=== PATIENT | male | born 1960 | race Caucasian/White ===

== ENCOUNTER 2021-08-19 23:21 | Inpatient (IN) | payer BC ==
[2021-08-20] MEDS ORDERED: Metoclopramide HCl 10 MG/2 ML VIAL ONE (00:18)
[2021-08-20] MEDS ORDERED: diphenhydrAMINE 50 MG/ML VIAL ONE (00:18)
[2021-08-20] MEDS ORDERED: Ondansetron PF 4 MG/2 ML Vial IVP PRN (03:30)
[2021-08-20] MEDS ORDERED: Acetaminophen 325 MG TAB PO PRN (03:30)
[2021-08-20] MEDS ORDERED: traMADol HCl 50 MG TAB PO PRN (03:31)
[2021-08-20] MEDS ORDERED: Acetaminophen 325 MG TAB ONE (03:32)
[2021-08-20] MEDS ORDERED: Sodium Chloride 0.9% 1,000 ML IV SCH (03:45)
[2021-08-20] MEDS ORDERED: Cefepime 2 GM VIAL ONE (05:58)
== END 2021-08-20 08:30 | disposition short-term general hospital (02) | DRG 808 ==
LOC: ERS 23:21 → ERHOLD 08-20 00:20
PROVIDERS: ADMIT Internal Medicine; ATTEND Internal Medicine
DX: D70.9 Neutropenia, unspecified (principal); J18.9 Pneumonia, unspecified organism; R50.81 Fever presenting with conditions classified elsewhere; D69.6 Thrombocytopenia, unspecified; F17.210 Nicotine dependence, cigarettes, uncomplicated
CPT/HCPCS: 36415; 36430; 83605; 86850; 86900; 86901; 96374; 96375; J0692; J1200; J2765; P9035

== ENCOUNTER 2021-10-28 21:39 | Observation (INO) | payer BC ==
[2021-10-28 23:32] LABS: Hemoglobin 6.2 g/dL (14.0-18.0); Mean Corpuscular HGB CONC 35.3 g/dL (32.0-36.0); Mean Corpuscular Volume 90.7 fL (78.0-98.0); Mean Platelet Volume 15.1 fL (7.4-10.4); Platelet Count 2 thou/uL (130-400); RBC Distribution Width 12.8 % (11.5-14.5); Red Blood Cell (RBC) Count 1.95 mill/uL (4.70-6.10); Reflex for Review?? YES; White Blood Cell (WBC) Count 0.5 thou/uL (4.8-10.8)
[2021-10-28 23:52] LABS: ALT (SGPT) 14 U/L (8-55); AST (SGOT) 9 U/L (5-34); Albumin 3.6 g/dL (3.5-5.0); Alkaline Phosphatase 88 U/L (40-110); Anion Gap 14 mmol/L (10-20); BUN (Urea Nitrogen) 14 mg/dL (8.4-25.7); Calc. Creatinine Clearance 0 mL/min (70-130); Calcium 9.6 mg/dL (7.8-10.44); Carbon Dioxide 26 mmol/L (22-29); Chloride 102 mmol/L (98-107); Globulin 2.8 g/dL (2.4-3.5); Glucose 130 mg/dL (70-105); Potassium 3.6 mmol/L (3.5-5.1); Protein, Total 6.4 g/dL (6.0-8.3); Sodium 138 mmol/L (136-145)
[2021-10-29 00:05] LABS: Hypochromia SLIGHT = 6-15 cells (100X) (0-5/hpf); MDiff Complete? YES; Platelet Morphology Comment Appears Decreased
[2021-10-29 00:14] LABS: Bilirubin, Total 0.5 mg/dL (0.2-1.2)
[2021-10-29 03:09] VITALS: BMI 24.4
[2021-10-29 03:54] LABS: SARS-CoV-2 NAA Rapid Test Not Detected (NotDetected)
[2021-10-29] MEDS ORDERED: Ondansetron PF 4 MG/2 ML Vial IVP PRN (09:44)
[2021-10-29] MEDS ORDERED: Acetaminophen 325 MG TAB PO PRN (09:44)
[2021-10-29] MEDS ORDERED: Promethazine HCl 25 MG in Sodium Chloride 0.9% 50 ML IVPB PRN (09:50)
[2021-10-29 13:48] LABS: Hemoglobin 7.1 g/dL (14.0-18.0); Mean Corpuscular HGB CONC 34.9 g/dL (32.0-36.0); Mean Corpuscular Hemoglobin 31.2 pg (27.0-31.0); Mean Corpuscular Volume 89.3 fL (78.0-98.0); Mean Platelet Volume 7.8 fL (7.4-10.4); Platelet Count 27 thou/uL (130-400); RBC Distribution Width 13.7 % (11.5-14.5); Red Blood Cell (RBC) Count 2.27 mill/uL (4.70-6.10); White Blood Cell (WBC) Count 0.8 thou/uL (4.8-10.8)
[2021-10-29 14:21] LABS: Band 24 % (5-11); Dohle Bodies SLIGHT; Lymphocytes 36 % (21-51); MDiff Complete? YES; Monocytes 16 % (0-10); Neutrophil 22 % (42-75); Platelet Morphology Comment Appears Decreased; Polychromasia SLIGHT = 2-3 cells (100X) (0-2/hpf); Reactive Lymphocytes 2 % (0-10)
[2021-10-29 15:56] VITALS: BP 103/74; TEMP 97.7
[2021-10-29] MEDS ORDERED: MIDOSTAURIN 25 MG PO SCH ×2 (21:00)
[2021-10-29] MEDS ORDERED: Acyclovir 400 mg Tablet PO SCH (21:00)
[2021-10-29] MEDS ORDERED: Temazepam 15 MG CAP PO SCH (21:00)
[2021-10-30] MEDS ORDERED: Fluconazole 100 MG TAB PO SCH (09:00)
[2021-10-30] MEDS ORDERED: Non-Formulary Item 1 EACH (Omeprazole [Omeprazole] 20 MG Capsule.Dr) PO SCH (09:00)
[2021-10-30] MEDS ORDERED: Docusate 100 MG CAP PO SCH (09:00)
[2021-10-30] MEDS ORDERED: Non-Formulary Item 1 EACH (Fluconazole [Fluconazole] 200 MG Tablet) PO SCH (09:00)
== END 2021-10-29 16:41 | disposition home or self-care (01) ==
LOC: ERS 21:39 → MSONC 10-29 00:22 → INTOOBSV 10-29 00:22
PROVIDERS: ADMIT Family Medicine; ATTEND Internal Medicine
DX: D61.810 Antineoplastic chemotherapy induced pancytopenia (principal); T45.1X5A Adverse effect of antineoplastic and immunosuppressive drugs, initial encounter; C92.00 Acute myeloblastic leukemia, not having achieved remission; Z20.822 Contact with and (suspected) exposure to COVID-19; J44.9 Chronic obstructive pulmonary disease, unspecified; Z79.899 Other long term (current) drug therapy; Z91.018 Allergy to other foods
CPT/HCPCS: 36415; 36430; 80053; 85025; 85060; 86850; 86900; 86901; G0378; P9016; P9035; U0002

== ENCOUNTER 2024-11-10 23:43 | Inpatient (IN) | payer MEDICARE ==
[2024-11-11] MEDS ORDERED: Melatonin 3 MG TAB PO PRN (01:14)
[2024-11-11] MEDS ORDERED: Ondansetron PF 4 MG/2 ML Vial IVP PRN (01:14)
[2024-11-11] MEDS ORDERED: Albuterol 2.5 MG (3 mL) NEB NEB PRN (01:21)
[2024-11-11 01:40] VITALS: BMI 25.2
[2024-11-11] MEDS: Azithromycin 500 MG in Sodium Chloride 0.9% 250 ML 250 ML IVPB SCH (02:03)
[2024-11-11] MEDS: cefTRIAXone\\ROCEPHIN 1 GM in Sodium Chloride 0.9% 100 ML IVPB SCH (02:03)
[2024-11-11 05:04] LABS: #Basophils Less than 0.03 10x3/uL (0.0-0.2); #Eosinophils Less than 0.03 10x3/uL (0.0-0.7); #Monocytes 0.16 10x3/uL (0.11-0.59); #Neutrophils 5.72 10x3/uL (1.40-6.50); %Basophils 0.1 % (0.0-1.0); %Eosinophils 0.0 % (0.0-10.0); %Lymphocytes 13.0 % (21.0-51.0); %Monocytes 2.3 % (0.0-10.0); %Neutrophils 84.0 % (42.0-75.0); Hematocrit 36.5 % (42.0-52.0); Hemoglobin 11.6 g/dL (14.0-18.0); Mean Corpuscular Hemoglobin 29.0 pg (27.0-31.0); Mean Corpuscular Volume 91.3 fL (78.0-98.0); Platelet Count 152 10x3/uL (130-400); Red Blood Cell (RBC) Count 4.00 mill/uL (4.70-6.10); White Blood Cell (WBC) Count 6.82 10x3/uL (4.8-10.8)
[2024-11-11 05:29] LABS: Anion Gap 11 mmol/L (10-20); BUN (Urea Nitrogen) 11 mg/dL (8.4-25.7); Calc. Creatinine Clearance 109 mL/min (70-130); Calcium 8.0 mg/dL (7.8-10.44); Carbon Dioxide 25 mmol/L (23-31); Chloride 108 mmol/L (98-107); Glucose 176 mg/dL (80-115); Potassium 4.3 mmol/L (3.5-5.1); Sodium 140 mmol/L (136-145)
[2024-11-11 06:12] LABS: Legionella Urinary Ag Negative (Negative); Strep pneumo Urine Ag NEGATIVE (NEGATIVE)
[2024-11-11] MEDS: guaiFENesin/DM ER PO SCH (21:20)
[2024-11-11] MEDS: Famotidine 20 MG TAB PO SCH (21:21)
[2024-11-11] MEDS: Acetaminophen 325 MG TAB PO PRN (21:21)
[2024-11-12 05:33] LABS: #Basophils Less than 0.03 10x3/uL (0.0-0.2); #Eosinophils Less than 0.03 10x3/uL (0.0-0.7); #Monocytes 0.37 10x3/uL (0.11-0.59); #Neutrophils 7.50 10x3/uL (1.40-6.50); %Basophils 0.1 % (0.0-1.0); %Eosinophils 0.0 % (0.0-10.0); %Lymphocytes 11.5 % (21.0-51.0); %Monocytes 4.1 % (0.0-10.0); %Neutrophils 83.2 % (42.0-75.0); Hematocrit 35.9 % (42.0-52.0); Hemoglobin 11.4 g/dL (14.0-18.0); Mean Corpuscular Hemoglobin 29.4 pg (27.0-31.0); Mean Corpuscular Volume 92.5 fL (78.0-98.0); Platelet Count 163 10x3/uL (130-400); Red Blood Cell (RBC) Count 3.88 mill/uL (4.70-6.10); White Blood Cell (WBC) Count 9.02 10x3/uL (4.8-10.8)
[2024-11-12 06:07] LABS: Anion Gap 9 mmol/L (10-20); BUN (Urea Nitrogen) 13 mg/dL (8.4-25.7); Calc. Creatinine Clearance 138 mL/min (70-130); Calcium 8.0 mg/dL (7.8-10.44); Carbon Dioxide 24 mmol/L (23-31); Chloride 111 mmol/L (98-107); Glucose 171 mg/dL (80-115); Potassium 3.7 mmol/L (3.5-5.1); Sodium 140 mmol/L (136-145)
[2024-11-12] MEDS ORDERED: MIDOSTAURIN 25 MG PO SCH (12:30)
[2024-11-12] MEDS: Ursodiol 300 MG CAP PO SCH (16:09)
[2024-11-12] MEDS: Mometasone 100 MCG HFA INHALER (RT USE) INH SCH (19:02)
[2024-11-13 05:31] LABS: #Basophils Less than 0.03 10x3/uL (0.0-0.2); #Eosinophils Less than 0.03 10x3/uL (0.0-0.7); #Monocytes 0.39 10x3/uL (0.11-0.59); #Neutrophils 8.42 10x3/uL (1.40-6.50); %Basophils 0.1 % (0.0-1.0); %Eosinophils 0.0 % (0.0-10.0); %Lymphocytes 12.2 % (21.0-51.0); %Monocytes 3.9 % (0.0-10.0); %Neutrophils 83.2 % (42.0-75.0); Hematocrit 35.6 % (42.0-52.0); Hemoglobin 11.6 g/dL (14.0-18.0); Mean Corpuscular Hemoglobin 29.7 pg (27.0-31.0); Mean Corpuscular Volume 91.0 fL (78.0-98.0); Platelet Count 181 10x3/uL (130-400); Red Blood Cell (RBC) Count 3.91 mill/uL (4.70-6.10); White Blood Cell (WBC) Count 10.11 10x3/uL (4.8-10.8)
[2024-11-13 06:06] LABS: Anion Gap 9 mmol/L (10-20); BUN (Urea Nitrogen) 16 mg/dL (8.4-25.7); Calc. Creatinine Clearance 134 mL/min (70-130); Calcium 8.1 mg/dL (7.8-10.44); Carbon Dioxide 27 mmol/L (23-31); Chloride 106 mmol/L (98-107); Glucose 119 mg/dL (80-115); Magnesium 2.3 mg/dL (1.6-2.6); Potassium 4.3 mmol/L (3.5-5.1)
[2024-11-13 06:09] LABS: Sodium 138 mmol/L (136-145)
[2024-11-13] MEDS: MIDOSTAURIN 25 MG PO SCH (08:24)
[2024-11-13] MEDS ORDERED: Non-Formulary Item 1 EACH (Fluticasone/Umeclidin/Vilanter [Trelegy Ellipta 200-62.5-25] 1 INH SCH (09:00)
[2024-11-14 06:26] LABS: Anion Gap 7 mmol/L (10-20); BUN (Urea Nitrogen) 18 mg/dL (8.4-25.7); Calc. Creatinine Clearance 146 mL/min (70-130); Calcium 8.2 mg/dL (7.8-10.44); Carbon Dioxide 28 mmol/L (23-31); Chloride 106 mmol/L (98-107); Glucose 123 mg/dL (80-115); Potassium 4.4 mmol/L (3.5-5.1); Sodium 137 mmol/L (136-145)
[2024-11-15] MEDS: predniSONE 20 MG TAB PO SCH (08:16)
[2024-11-15 12:07] VITALS: BP 133/84; TEMP 97.3
== END 2024-11-15 17:03 | disposition home or self-care (01) | DRG 871 ==
LOC: OBS 11-11 00:53
PROVIDERS: ADMIT Internal Medicine; ATTEND Emergency Medicine
DX: A41.9 Sepsis, unspecified organism (principal); J18.9 Pneumonia, unspecified organism; J96.01 Acute respiratory failure with hypoxia; C92.00 Acute myeloblastic leukemia, not having achieved remission; J44.1 Chronic obstructive pulmonary disease with (acute) exacerbation; J44.0 Chronic obstructive pulmonary disease with (acute) lower respiratory infection; R65.10 Systemic inflammatory response syndrome (SIRS) of non-infectious origin without acute organ dysfunction; K40.90 Unilateral inguinal hernia, without obstruction or gangrene, not specified as recurrent; Z98.890 Other specified postprocedural states; Z87.891 Personal history of nicotine dependence; Z99.81 Dependence on supplemental oxygen
CPT/HCPCS: 36415; 80048; 83735; 85025; 87449; 87899; 94640; J0456; J0696; J2919; J7050; J7512; J7620